=== PATIENT | female | born 1995 | race Caucasian/White ===

== ENCOUNTER 2024-12-07 18:55 | Inpatient (IN) ==
[2024-12-07 19:50] LABS: Basophils # (auto) 0.02 K/uL (0.00-0.20); Basophils % (auto) 0.2 %; Hematocrit (blood only) 36.9 % (37.0-47.0); Hemoglobin 13.3 g/dl (12.0-16.0); Immature Granulocytes # (auto) 0.04 K/uL (0.01-0.20); Immature Granulocytes % (auto) 0.4 %; Lymphocytes # (auto) 0.68 K/uL (1.20-3.40); Lymphocytes % (auto) 6.1 %; Mean Corpuscular Hemoglobin 32.4 pg (25.0-34.0); Mean Platelet Volume 8.8 fL (9.4-12.4); Monocytes # (auto) 1.11 K/uL (0.11-0.59); Neutrophils # (auto) 9.23 K/uL (1.40-6.50); Neutrophils % (auto) 83.3 %; Platelet Count 184 K/uL (130-400); RDW Coefficient of Variation 11.7 % (11.5-14.5); White Blood Count 11.08 K/ul (4.8-10.8)
[2024-12-07 20:01] LABS: Appearance Urine Cloudy (Clear); Bacteria Urine Automated 4+ (None Seen); Bilirubin Urine Negative (Negative); Blood Urine 2+ (Negative); Cast Urine Automated 0-2 /lpf (0-2); Color Urine Yellow; Glucose Urine UA Negative (Negative); Ketones Urine 1+ (Negative); Leukocyte Esterase Urine 3+ (Negative); Nitrite Urine Positive (Negative); Protein Urine 2+ (Negative); Specific Gravity Urine 1.013 (1.000-1.030); Urobilinogen Urine Negative (Negative); WBC Urine Automated >50 /hpf (0-5); pH Urine 5.5 (4.5-7.5)
--- NOTE | 2024-12-07 20:10 | Emergency Department Note ---
Impression & Plan Pyelonephritis, Sepsis, Rigors ED Provider Note NAME: SUNDEEP FRIEDMAN AGE: 29 SEX: F : 1995 ARRIVES VIA: Walk-In INFORMANT: Patient, ED PROVIDER(S): Andrés Stephens MD CHIEF COMPLAINT: Flank pain, burning urination HPI: This is a 29-year-old female sent for fever, flank pain and burning urination. Patient notes that she had a fever today above 100. She notes that she has a new onset headache, nausea and flank pain to the left. She reports 5+ day history of vaginal itching without discharge. Supposed to see EHR TRAINER tomorrow. She feels very weak today. She has no pain to her area. She is having burning with urination. No urgency or frequency. ROS: See above HPI for pertinent positives & negatives. A total of 10 systems reviewed and were otherwise negative. PAST MEDICAL HISTORY: See Below PAST SURGICAL HISTORY: See Below FAMILY HISTORY: See Below SOCIAL HISTORY: See Below HOME MEDICATIONS: See Below ALLERGIES: See Below VITALS: See Below PHYSICAL EXAMINATION: General: resting comfortably in no acute distress Head: Normocephalic and atraumatic Eyes: Normal inspection, extraocular muscles intact Ear, nose, throat: Normal external exam Neck: Normal range of motion Respiratory: lungs clear to auscultation bilaterally Cardiovascular: Regular rate/rhythm, no murmur GI: Left CVA tenderness, soft nontender anterior abdomen Extremities: nontender, moves all extremities Neuro: The patient awake and alert, appropriately conversive, no focal deficits, symmetric faces Skin: Warm, dry, and intact MEDICAL DECISION MAKING: This is a 29-year-old female presenting for fever/flank pain. Patient has CVA tenderness to palpation. She has burning urination. She is currently tachycardic, on arrival was at 117, 105 in the room currently. Her blood pressure initially was 115/70, now it is 92/60. Will give 1 L normal saline. Considered sepsis, pyelonephritis, renal colic. - Labs reviewed with a borderline leukocytosis of 11. Otherwise electrolytes show slight hypokalemia and hyponatremia. Lactic acid elevated at 0.9 -Urinalysis reveals consistent with a UTI. Based on symptoms, this appears more consistent with pyelonephritis. -Discharge was considered however patient began having new abdominal pain during the course of her visit here. Patient did have resolved tachycardia at this time but is still borderline low blood pressures. -Patient went for CAT scan, currently pending reading. There are significant delays from overnight radiology read service - Patient began having new tachycardia now to 130s. She has Reiger ring in the stretcher. She is not febrile however. Patient appears toxic at this time. -Will admit the patient for her suspected pyelonephritis currently pending CT imaging. She is already received ceftriaxone and saline. She is still not hypotensive. Differential diagnosis: Pyelonephritis, cystitis, sepsis, diverticulitis, colitis, bowel perforation, appendicitis Diagnostics interpreted by me: ECG: None Cardiac Monitoring: An order was placed for continuous cardiac monitoring. The monitor shows a rate of 122 with sinus rhythm. Critical Care Note: I have personally spent 34 minutes of critical care time in the direct management of this patient. This includes bedside care, interpretation of diagnostic studies, and testing, discussion with consultants, patient, and family members, and other required patient management activities. This 34 minutes is in excess of all separately billable procedures. Past Med/Surg History Problem List (Updated 12/08/24 @ 01:28 by Andrés Stephens MD) Rigors (Acute) Sepsis (Acute) Pyelonephritis (Acute) Weight loss BERNIE (iron deficiency anemia) Abnormal thyroid function test Migraine Side effect of medication Seizure disorder Medical History Hx of gastroesophageal reflux (GERD) Hx of gastric ulcer History of COVID-19 Hx of seizure disorder Abnormal thyroid function test Iron deficiency Weight loss Hx of migraines Surgical History History of esophagogastroduodenoscopy (EGD) History of tooth extraction Family History Other Family history non-contributory Social History Smoking Status: Never smoker Second Hand Exposure: No; Do You Dip or Chew Tobacco: No; Hx Alcohol Use: Yes Alcohol type: beer, wine and hard liquor Hx Substance Use: No Preferred Language: Serbian Communication Ability: Effective Bilingual Social Worker Required: No Beliefs That Will Affect Care: None Current Living Situation: Alone 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 Feels Safe at Home: Yes Assistive Devices: Glasses Allergies Allergies Allergy/AdvReac Type Severity Reaction Status Date / Time No Known Drug Allergies Allergy Unknown Verified 11/19/24 10:07 Home Meds Home Medications Medication Instructions Recorded Confirmed desvenlafaxine succinate 50 mg 50 mg PO HS 04/15/24 12/07/24 tablet,extended release 24 hr acetaminophen 500 mg tablet 1,000 mg PO Q6H PRN Fever Or Pain 12/07/24 12/07/24 (Tylenol Extra Strength) norethindrone (contraceptive) 0.35 0.35 mg PO DAILY 12/07/24 12/07/24 mg tablet (Incassia) Previous Rx's Medication Instructions Recorded carbamazepine 200 mg 200 mg PO BID 90 days #180 tabs 03/17/24 tablet,extended release,12 hr (Tegretol XR) pantoprazole 40 mg tablet,delayed 40 mg PO DAILY #90 tabs 08/26/24 release (Protonix) lamotrigine 25 mg tablet 50 mg (2 x 25 mg) PO BID 90 days 09/15/24 #360 tabs rizatriptan 10 mg disintegrating 10 mg PO Q2H PRN migraine headache 11/19/24 tablet #12 tabs Results & Data (ED) Vital Signs Vital Signs - 24 hr 12/07/24 18:57 12/07/24 19:46 12/07/24 20:18 Temperature 36.7 C Temperature Source Oral Pulse Rate 117 H 107 H 92 H Pulse Rate from SpO2 Sensor 93 H Pulse Rhythm Regular Pulse Strength Normal Respiratory Rate 20 25 H Respiratory Effort / Characteristics Non-Labored Spontaneous Respiratory Depth Normal Respiratory Pattern Regular Blood Pressure 115/70 105/65 Blood Pressure Mean 85 78 Pulse Oximetry 99 98 Oxygen Delivery Method Room Air Room Air Sepsis Recent Fever Within 48 Hours Yes Sepsis New/Unexplained Change in Mental Status No Sepsis Action Taken by Nursing No Action Required 12/07/24 22:30 12/07/24 23:00 12/07/24 23:36 Temperature Temperature Source Pulse Rate 79 83 122 H Pulse Rate from SpO2 Sensor 80 84 121 H Pulse Rhythm Pulse Strength Respiratory Rate 22 28 H 26 H Respiratory Effort / Characteristics Respiratory Depth Respiratory Pattern Blood Pressure 103/66 99/60 L 118/80 Blood Pressure Mean 78 73 92 Pulse Oximetry 99 99 83 L Oxygen Delivery Method Room Air Sepsis Recent Fever Within 48 Hours Sepsis New/Unexplained Change in Mental Status Sepsis Action Taken by Nursing 12/07/24 23:39 12/07/24 23:45 12/08/24 00:00 Temperature 36.3 C L Temperature Source Oral Pulse Rate 108 H 107 H Pulse Rate from SpO2 Sensor 108 H Pulse Rhythm Pulse Strength Respiratory Rate 18 Respiratory Effort / Characteristics Respiratory Depth Respiratory Pattern Blood Pressure 116/73 Blood Pressure Mean 86 Pulse Oximetry 98 Oxygen Delivery Method Room Air Sepsis Recent Fever Within 48 Hours Sepsis New/Unexplained Change in Mental Status Sepsis Action Taken by Nursing Laboratory Data 12/07/24 19:34 12/07/24 19:34 Lab Results 12/07/24 12/07/24 Range/Units 19:34 23:52 WBC 11.08 H (4.8-10.8) K/ul RBC 4.10 L (4.20-5.40) M/uL Hgb 13.3 (12.0-16.0) g/dl Hct 36.9 L (37.0-47.0) % MCV 90.0 (80.0-100.0) fL MCH 32.4 (25.0-34.0) pg MCHC 36.0 (32.0-36.0) g/dL RDW Std Deviation 38.0 (36.4-46.3) fL RDW Coeff of [place] 11.7 (11.5-14.5) % Plt Count 184 (130-400) K/uL MPV 8.8 L (9.4-12.4) fL Immature Gran % (Auto) 0.4 % Neut % (Auto) 83.3 % Lymph % (Auto) 6.1 % [place] % (Auto) 10.0 % Eos % (Auto) 0.0 % Baso % (Auto) 0.2 % Neut # (Auto) 9.23 H (1.40-6.50) K/uL Lymph # (Auto) 0.68 L (1.20-3.40) K/uL [place] # (Auto) 1.11 H (0.11-0.59) K/uL Eos # (Auto) 0.00 (0.00-0.50) K/uL Baso # (Auto) 0.02 (0.00-0.20) K/uL Immature Gran # (Auto) 0.04 (0.01-0.20) K/uL Sodium 134 L (136-145) mmol/L Potassium 3.4 L (3.5-5.1) mmol/L Chloride 101 (98-107) mmol/L Carbon Dioxide 23 (21-32) mmol/L Anion Gap 10 (3-11) BUN 12 (6-23) mg/dl Creatinine 0.77 (0.6-1.2) mg/dl Est Cr Clr Drug Dosing 90.4 ml/min eGFR 105.70 BUN/Creatinine Ratio 15.6 (10-20) Glucose 110 H (70-99(Fasting)) mg/dl Lactate 0.9 2.8 H* (0.4-2.0) mmol/L Calcium 9.2 (8.6-10.3) mg/dl Total Bilirubin 0.6 (0.2-1.0) mg/dl AST 15 (13-39) U/L ALT 9 (7-52) U/L Alkaline Phosphatase 73 (34-104) U/L Total Protein 7.7 (6.0-8.3) gm/dl Albumin 4.2 (3.4-5.0) gm/dl Globulin 3.5 (2.5-4.0) gm/dl Albumin/Globulin Ratio 1.2 (0.9-2) Urine Color Yellow Urine Appearance Cloudy A (Clear) Urine pH 5.5 (4.5-7.5) Ur Specific [place] 1.013 (1.000-1.030) Urine Protein 2+ H (Negative) Urine Glucose (UA) Negative (Negative) Urine Ketones 1+ H (Negative) Urine Blood 2+ H (Negative) Urine Nitrite Positive A (Negative) Urine Bilirubin Negative (Negative) Urine Urobilinogen Negative (Negative) Ur Leukocyte Esterase 3+ H (Negative) Urine WBC (Auto) >50 H (0-5) /hpf Urine RBC (Auto) 3-5 H (0-2) /hpf U Hyaline Cast (Auto) 0-2 (0-2) /lpf U Epithel Cells (Auto) 3-5 H (0-2) /hpf Urine Bacteria (Auto) 4+ H (None Seen) Urine Comment Administered Medications Discontinued Medications Ceftriaxone Sodium (Rocephin) 2,000 mg in 50 mls @ 100 mls/hr IV NOW STA Stop: 12/07/24 20:35 Last Infusion: 12/07/24 20:55 Dose: Infused Documented By: Admin: 12/07/24 20:25 Dose: 100 mls/hr Documented By: SAMPSON Sodium Chloride (Nss) 1,000 mls @ 999 mls/hr IV .Q1H1M ONE Stop: 12/07/24 21:10 Last Infusion: 12/07/24 21:38 Dose: Infused Documented By: Admin: 12/07/24 20:25 Dose: 999 mls/hr Documented By: SAMPSON Acetaminophen (Ofirmev) 1,000 mg in 100 mls @ 400 mls/hr IV NOW STA Stop: 12/07/24 23:53 Last Infusion: 12/08/24 00:01 Dose: Infused Documented By: Admin: 12/07/24 23:46 Dose: 400 mls/hr Documented By: ROSIBEL Sodium Chloride (Nss) 1,000 mls @ 999 mls/hr IV .Q1H1M ONE Stop: 12/08/24 00:56 Last Admin: 12/08/24 00:05 Dose: 999 mls/hr Documented By: NICOLE Ioversol (Optiray 320 100ml) 93 ml IV ONCE ONE Stop: 12/07/24 22:03 Last Admin: 12/07/24 22:02 Dose: 93 ml Documented By: DIANA Ondansetron HCl (Ondansetron Inj 2 Mg/Ml 2 Ml Vial) 4 mg IV NOW STA Stop: 12/07/24 23:57 Last Admin: 12/08/24 00:06 Dose: 4 mg Documented By: NICOLE Discharge Plan Visit Data Chief Complaint: Fever Stated Complaint: FEVER,WEAKNESS ED Provider: Andrés Stephens Discharge Problem: Pyelonephritis, Sepsis, Rigors Patient Disposition: Admitted As Inpatient Condition: Fair Forms Stand Alone Forms: [facility] Prescriptions Prescriptions: No Action carbamazepine [Tegretol XR] 200 mg tablet extended release 12 hr 200 mg PO BID 90 Days Qty: 180 3RF lamotrigine 25 mg tablet 50 mg PO BID 90 Days Qty: 360 3RF rizatriptan 10 mg tablet,disintegrating 10 mg PO Q2H PRN (Reason: migraine headache) Qty: 12 5RF Rx Instructions: do not exceed 3 doses per 24 hrs desvenlafaxine succinate 50 mg tablet extended release 24 hr 50 mg PO HS norethindrone (contraceptive) [Incassia] 0.35 mg tablet 0.35 mg PO DAILY acetaminophen [Tylenol Extra Strength] 500 mg Tablet 1,000 mg PO Q6H PRN (Reason: Fever Or Pain) pantoprazole [Protonix] 40 mg tablet,delayed release (DR/EC) 40 mg PO DAILY Qty: 90 0RF Rx Instructions: take 1/2 hr before breakfast Referrals Referrals: [place] [Primary Care Provider] - Discharge Problem: Sepsis Qualifiers: Sepsis type: sepsis due to unspecified organism Sepsis acute organ dysfunction status: without acute organ dysfunction Qualified Code(s): A41.9 - Sepsis, unspecified organism
[2024-12-07 20:14] LABS: Albumin Globulin Ratio 1.2 (0.9-2); Albumin Level 4.2 gm/dl (3.4-5.0); BUN Creatinine Ratio 15.6 (10-20); Bilirubin,Total 0.6 mg/dl (0.2-1.0); Calcium 9.2 mg/dl (8.6-10.3); Creatinine Clr Calc Pharmacy 90.4 ml/min; Globulin 3.5 gm/dl (2.5-4.0); Potassium 3.4 mmol/L (3.5-5.1); Total Protein 7.7 gm/dl (6.0-8.3)
[2024-12-07] MEDS: cefTRIAXone SODIUM 2,000 MG/50 ML BAG IV STA (20:25)
[2024-12-07] MEDS: SODIUM CHLORIDE 0.9% 1,000 ML IV ONE (20:25)
[2024-12-07] MEDS: OPTIRAY 320 100ml IV ONE (22:02)
[2024-12-07] MEDS: ACETAMINOPHEN 1,000 MG/100 ML VIAL IV STA (23:46)
[2024-12-08] MEDS: SODIUM CHLORIDE 0.9% 1,000 ML IV ONE (00:05)
[2024-12-08] MEDS: ONDANSETRON INJ 2 MG/ML 2 ML VIAL IV STA (00:06)
--- NOTE | 2024-12-08 00:25 | History & Physical Report ---
Date of Service December 08, 2024 Assessment & Plan (1) Pyelonephritis: (2) Sepsis: (3) Seizure disorder: Plan 29 year old female presents to the ER with dysuria, abdominal pain, fever and chills. #Acute pyelonephritis / Sepsis NSS 2L bolus, Lactate 2.8 -> 0.5 IV ceftriaxone Follow up blood and urine cultures #Seizure disorder Continue carbamazepine XR and lamotrigine VTE Prophylaxis - low risk Diet - regular Disposition - admit to med/surg Admission and Anticipated Discharge Date Admission Date: December 08, 2024 History of Present Illness Chief Complaint: Dysuria, fever, chills Primary Care Provider: [facility] Jessica Hammond is a 29 year old female who presents to the ER with dysuria, abdominal pain, fever and chills. She reports 4-5 days of dysuria and vaginal itching. Last night she started with fever, chills with associated right lower abdominal pain, right sided flank pain, headache and nausea. No history of urine tract infection or kidney stones. Allergies Allergy/AdvReac Type Severity Reaction Status Date / Time No Known Drug Allergies Allergy Unknown Verified 11/19/24 10:07 Home Medications Medication Instructions Recorded Confirmed Type carbamazepine 200 mg 200 mg PO BID 90 days #180 tabs 03/17/24 12/07/24 Rx tablet,extended release,12 hr (Tegretol XR) desvenlafaxine succinate 50 mg 50 mg PO HS 04/15/24 12/07/24 History tablet,extended release 24 hr pantoprazole 40 mg tablet,delayed 40 mg PO DAILY #90 tabs 08/26/24 12/07/24 Rx release (Protonix) lamotrigine 25 mg tablet 50 mg (2 x 25 mg) PO BID 90 days 09/15/24 12/07/24 Rx #360 tabs rizatriptan 10 mg disintegrating 10 mg PO Q2H PRN migraine headache 11/19/24 12/07/24 Rx tablet #12 tabs acetaminophen 500 mg tablet 1,000 mg PO Q6H PRN Fever Or Pain 12/07/24 12/07/24 History (Tylenol Extra Strength) norethindrone (contraceptive) 0.35 0.35 mg PO DAILY 12/07/24 12/07/24 History mg tablet (Incassia) Past Med/Surg History Problem List (Updated 12/08/24 @ 01:28 by Andrés Stephens MD) Rigors (Acute) Sepsis (Acute) Pyelonephritis (Acute) Weight loss BERNIE (iron deficiency anemia) Abnormal thyroid function test Migraine Side effect of medication Seizure disorder Medical History Hx of gastroesophageal reflux (GERD) Hx of gastric ulcer History of COVID-19 Hx of seizure disorder Abnormal thyroid function test Iron deficiency Weight loss Hx of migraines Surgical History History of esophagogastroduodenoscopy (EGD) History of tooth extraction Family History Other Family history non-contributory Social History Smoking Status: Never smoker Second Hand Exposure: No; Do You Dip or Chew Tobacco: No; Hx Alcohol Use: Yes Alcohol type: beer, wine and hard liquor Hx Substance Use: No Preferred Language: South African Communication Ability: Effective Manager Loss Prevention Required: No Beliefs That Will Affect Care: None Current Living Situation: Alone 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 Feels Safe at Home: Yes Assistive Devices: Glasses Review of Systems Review of Systems: All systems reviewed & are unremarkable except as noted in HPI & below Physical Exam Constitutional: WD/WN, vitals as above ENMT: external ear and nose normal, oropharynx normal Respiratory: normal respiratory effort, lungs clear to auscultation Cardiovascular: Rate/Rhythm: regular rhythm and + tachycardic Heart Sounds: no murmur Extremities: normal capillary refill; no calf tenderness and no pedal edema Gastrointestinal (Abdomen): Inspection/Auscultation: abdomen normal to inspection; abdomen not distended Percussion/Palpation: + abdomen tender (Right sided) and abdomen soft Skin: no rashes, warm and dry Neurologic: moves all extremities and awake; not confused Psychiatric: A+Ox3, euthymic affect Genitourinary: + CVA tenderness (right) Results & Data Results & Data Vital Signs (Past 12 Hours) Vital Signs Temp Pulse Resp BP Pulse Ox O2 Del Method 12/07/24 23:45 108 H 12/07/24 23:39 36.3 C L 12/07/24 23:36 122 H 26 H 118/80 83 L 12/07/24 23:00 83 28 H 99/60 L 99 Room Air 12/07/24 22:30 79 22 103/66 99 12/07/24 20:18 92 H 25 H 105/65 98 Room Air 12/07/24 19:46 107 H 12/07/24 18:57 36.7 C 117 H 20 115/70 99 Room Air Laboratory Results Abnormal lab results 12/07/24 12/07/24 Range/Units 19:34 23:52 WBC 11.08 H (4.8-10.8) K/ul RBC 4.10 L (4.20-5.40) M/uL Hct 36.9 L (37.0-47.0) % MPV 8.8 L (9.4-12.4) fL Neut # (Auto) 9.23 H (1.40-6.50) K/uL Lymph # (Auto) 0.68 L (1.20-3.40) K/uL [place] # (Auto) 1.11 H (0.11-0.59) K/uL Sodium 134 L (136-145) mmol/L Potassium 3.4 L (3.5-5.1) mmol/L Glucose 110 H (70-99(Fasting)) mg/dl Lactate 2.8 H* (0.4-2.0) mmol/L Urine Appearance Cloudy A (Clear) Urine Protein 2+ H (Negative) Urine Ketones 1+ H (Negative) Urine Blood 2+ H (Negative) Urine Nitrite Positive A (Negative) Ur Leukocyte Esterase 3+ H (Negative) Urine WBC (Auto) >50 H (0-5) /hpf Urine RBC (Auto) 3-5 H (0-2) /hpf U Epithel Cells (Auto) 3-5 H (0-2) /hpf Urine Bacteria (Auto) 4+ H (None Seen) Medications Administered ER Medications Given: Ceftriaxone 2000mg IV Normal saline 1000ml bolus Acetaminophen 1000mg IV Code Status & VTE Plan Code Status Full VTE Prophylaxis Plan VTE Prophylaxis will be ordered: No PG Care Time/CCT Total # of Minutes Spent Total Time Spent with Patient: Total time spent is greater than 50% in coordination of care (as documented) at patient's floor/unit and/or counseling patient: Coding Level of Care Code 41009 INT INP/OBS CARE MIN Diagnoses Pyelonephritis N12 Sepsis A41.9 Sepsis acute organ dysfunction status: without acute organ dysfunction Sepsis type: sepsis due to unspecified organism Seizure disorder G40.909 (2) Sepsis Sepsis acute organ dysfunction status: without acute organ dysfunction Sepsis type: sepsis due to unspecified organism Qualified Code(s): A41.9 - Sepsis, unspecified organism
--- NOTE | 2024-12-08 02:22 | CT Scan Report ---
Exam(s): CT ABDOMEN + PELVIS With Contrast IV Amt: 93 ml optiray 320 EXAM: CT Abdomen and Pelvis With Intravenous Contrast CLINICAL HISTORY: Reason for exam: Flank pain, lower abd pain, pyelo vs renal colic. TECHNIQUE: Axial computed tomography images of the abdomen and pelvis with intravenous contrast. CTDI is 7.43 mGy and DLP is 388.52 mGy-cm. Automated exposure control was utilized for the study. A dose lowering technique was utilized adhering to the principles of ALARA. CONTRAST: Patient received 93 ml optiray 320 of IV contrast COMPARISON: CT dated 07/19/24, MRI abdomen dated 09/09/24 FINDINGS: Lung bases: Unremarkable. No mass. No consolidation. ABDOMEN: Liver: Stable right hepatic lobe hypodensity characterized as hemangioma on the prior MRI. Gallbladder and bile ducts: Unremarkable. No calcified stones. No ductal dilation. Pancreas: Unremarkable. No mass. No ductal dilation. Spleen: Unremarkable. No splenomegaly. Adrenals: Unremarkable. No mass. Kidneys and ureters: Wedge-shaped patchy hypodense areas of the kidneys bilaterally. Bilateral urothelial enhancement and mild perinephric/periureteral stranding. No hydronephrosis. No urinary tract calculi Stomach and bowel: Unremarkable. No obstruction. No mucosal thickening. PELVIS: Appendix: Normal appendix. Bladder: Bladder wall thickening of moderately distended bladder. Likely reflects cystitis. Reproductive: Unremarkable as visualized. ABDOMEN and PELVIS: Intraperitoneal space: Trace fluid in the pelvis. No free air. Bones/joints: No acute fracture. No dislocation. Soft tissues: Unremarkable. Vasculature: Unremarkable. No abdominal aortic aneurysm. Lymph nodes: Unremarkable. No enlarged lymph nodes. IMPRESSION: Wedge-shaped patchy hypodense areas of the kidneys bilaterally. Bilateral urothelial enhancement and mild perinephric/periureteral stranding. Findings correlate with pyelonephritis. Electronically signed by: Corie Villafana M.D. 12/08/24 02:22 AM
[2024-12-08] MEDS ORDERED: ACETAMINOPHEN 500 MG TAB PO PRN (02:51)
[2024-12-08] MEDS ORDERED: ONDANSETRON INJ 2 MG/ML 2 ML VIAL IV PRN (03:05)
[2024-12-08] MEDS: ORAL CONTRACEPTIVE~ORDER AWAITING ACTION SCH (07:08)
--- NOTE | 2024-12-08 08:28 | Hospitalist Progress Note ---
Date of Service December 08, 2024 Assessment & Plan Plan 29 year old female presents to the ER with dysuria, abdominal pain, fever and chills. #Acute pyelonephritis / Sepsis S/p NSS 2L bolus, Lactate 2.8 -> 0.5 IV ceftriaxone Follow up blood and urine cultures #Seizure disorder Continue carbamazepine XR and lamotrigine VTE Prophylaxis - low risk Diet - regular Disposition - admit to med/surg Admission and Anticipated Discharge Date Admission Date: December 08, 2024 Subjective Seen this morning, Feeling better. Pain and nausea are improved. Denied any chest pain, abdominal pain, fever, or chills Review of Systems Review of Systems: as per HPI Physical Exam Constitutional: WD/WN, vitals as above Respiratory: normal respiratory effort, lungs clear to auscultation Cardiovascular: RRR, no murmur, no edema Gastrointestinal (Abdomen): normal bowel sounds, soft, nontender, no hepatosplenomegaly Results & Data Results & Data Vital Signs (Past 12 Hours) Vital Signs Temp Pulse Pulse Pulse Resp BP BP 12/08/24 07:47 36.7 C 77 17 92/58 L 12/08/24 02:50 36.9 C 77 14 12/08/24 01:00 100 H 24 94/59 L 12/08/24 00:00 107 H 18 116/73 12/07/24 23:45 108 H 12/07/24 23:39 36.3 C L 12/07/24 23:36 122 H 26 H 118/80 12/07/24 23:00 83 28 H 99/60 L 12/07/24 22:30 79 22 103/66 BP Pulse Ox O2 Del Method 12/08/24 07:47 97 Room Air 12/08/24 02:50 95/59 L 96 Room Air 12/08/24 01:00 95 Room Air 12/08/24 00:00 98 Room Air 12/07/24 23:45 12/07/24 23:39 12/07/24 23:36 83 L 12/07/24 23:00 99 Room Air 12/07/24 22:30 99 Resident Activity Tracking Resident Involvement: Resident Care Provided Care Provided: Adult Hospital Medicine
[2024-12-08] MEDS: lamoTRIgine 25 MG TAB PO SCH (09:12)
[2024-12-08] MEDS: carBAMazepine XR 200 MG TABCR PO SCH (09:12)
[2024-12-08] MEDS: PANTOprazole 40 MG TAB PO SCH (09:12)
[2024-12-08 14:29] VITALS: BP 95/61; PULSE 63; RESP 16; TEMP 98.6; O2SAT 100
[2024-12-08] MEDS: cefTRIAXone SODIUM 2,000 MG/50 ML BAG IV SCH (15:11)
--- NOTE | 2024-12-08 15:23 | Discharge Summary ---
Date of Service December 08, 2024 Admission HPI Per Admitting Provider Jessica Hammond is a 29 year old female who presents to the ER with dysuria, abdominal pain, fever and chills. She reports 4-5 days of dysuria and vaginal itching. Last night she started with fever, chills with associated right lower abdominal pain, right sided flank pain, headache and nausea. No history of urine tract infection or kidney stones. Principal Diagnosis Pyelonephritis Discharge Exam Constitutional WD/WN, vitals as above Respiratory normal respiratory effort, lungs clear to auscultation Cardiovascular RRR, no murmur, no edema Gastrointestinal (Abdomen) normal bowel sounds, soft, nontender, no hepatosplenomegaly Discharge Data Allergies Allergy/AdvReac Type Severity Reaction Status Date / Time No Known Drug Allergies Allergy Unknown Verified 11/19/24 10:07 Consultations 12/07/24 23:54 ED Decision to Admit Stat Ordered Studies 12/07/24 21:46 CT abd pelvis IV con only Stat Hospital Course (1) Pyelonephritis: Plan 29 year old female presents to the ER with dysuria, abdominal pain, fever and chills. #Acute pyelonephritis / Sepsis S/p NSS 2L bolus, Lactate 2.8 -> 0.5, WBC 11 Treated IV ceftriaxone Urine culture - E/Coli Blood culture negative for 24 hrs - Will discharged home with Cefpodoxime 200 mg BID for 14 days #Seizure disorder Continue carbamazepine XR and lamotrigine VTE Prophylaxis - low risk Diet - regular Disposition - admit to med/surg Total Time Total Time Spent Total Time Spent (In Minutes): see attending documentation Discharge Plan Discharge Items Patient Disposition: Home - Self-Care Reason For Visit: ACUTE PYELONEPHRITIS Discharge Diagnosis: Pyelonephritis Condition on Discharge: Fair Activity: Per Instructions section Non-emergency contact: Primary Care Provider Call non-emergency contact if: you have any medication questions, your symptoms worsen and your temperature is above 101 Follow-up/Referrals: [place] [Primary Care Provider] - Diet: Regular Addtl Attending Provider Instructions: You were admitted to the hospital due to pyelonephritis (infection on your kidneys). You were treated with IV antibiotics and fluids. We will continue antibiotics for 14 days in total. We sent to your pharmacy Cefpodoxime 200 mg twice a day for 12 more days. Blood culture are pending, we will reach out if this result positive. A discharge summary will be sent to your primary care physician to ensure continuity of care. Please bring this discharge summary with you to your next office appointment so that your provider can review it at that time. Medications: Your medication list has been reviewed and reconciled upon discharge to ensure accuracy and continuity of care. An updated list of all your medications is included with your hospital discharge paperwork. Please review this list closely and make note of any changes to your medications. Follow up appointments: - Make a follow up appointment with your PCP within the next week. It is very important that you follow up with them shortly after discharge from the hospital. - Keep all of your follow up appointments as already scheduled. If you cannot make an appointment, notify your provider. CONTACT YOUR PRIMARY CARE PROVIDER if you experience any of the following: - Difficulty following your treatment plan - Difficulty taking any of your medications CALL 911 OR GO TO THE EMERGENCY DEPARTMENT if you experience any of the following: - Sudden, severe abdominal pain or nausea/vomiting - Severe chest pain or chest pain that radiates to your jaw or arm - Sudden, severe shortness of breath or difficulty breathing Pending Studies at Discharge: Yes (blood culture) Stand-Alone Forms: [facility], Smoking Cessation Medications and DC Order Prescriptions: New cefpodoxime 200 mg tablet 200 mg PO BID 12 Days Qty: 24 0RF Rx Instructions: must administer with a meal/food Continued carbamazepine [Tegretol XR] 200 mg tablet extended release 12 hr 200 mg PO BID 90 Days Qty: 180 3RF lamotrigine 25 mg tablet 50 mg PO BID 90 Days Qty: 360 3RF rizatriptan 10 mg tablet,disintegrating 10 mg PO Q2H PRN (Reason: migraine headache) Qty: 12 5RF Rx Instructions: do not exceed 3 doses per 24 hrs desvenlafaxine succinate 50 mg tablet extended release 24 hr 50 mg PO HS norethindrone (contraceptive) [Incassia] 0.35 mg tablet 0.35 mg PO DAILY acetaminophen [Tylenol Extra Strength] 500 mg Tablet 1,000 mg PO Q6H PRN (Reason: Fever Or Pain) pantoprazole [Protonix] 40 mg tablet,delayed release (DR/EC) 40 mg PO DAILY Qty: 90 0RF Rx Instructions: take 1/2 hr before breakfast Discharge Orders: Discharge Order (Routine); Ordered 12/08/24 Ordered By: Rajesh Nino Admission Data Admit Date/Time: 12/08/24 02:11 Attending Provider: Jeremy Conway Admit Provider: Dallas Orozco Primary Care Provider: [facility] Other Providers: Dallas Orozco Other Interventions: Discharge Summary Assessment (RN) Last Done: 12/08/24 16:03 Supervising Physician Co-Signing Physician Notes I personally examined the patient and verified all guzman points of history and exam, discussed case, and agree with decision making with Dr Ramón Nino Feeling better overall. Would like to go home. Discussed final results of urine culture still pending. She is okay with empiric treatment and is calling to adjust treatment if necessary after discharge. Vitals noted, in general she is awake and alert pleasant no distress. HEENT normocephalic atraumatic mucous membranes moist. Breathing unlabored no accessory muscle use good effort. Skin without rashes pallor or icterus. Neuro without focal deficits. Labs and diagnostics noted pyelonephritis with possible sepsis present on admission (SIRS criteria would be heart rate and respiratory rate)culture showing E. coli, sensitivities pending. She looks and feels well and would like to go home. Improving on ceftriaxone. We discussed empiric treatment with cefpodoxime, and we will call if her urine culture/sensitivities show a need for change of antibiotics. She is comfortable with this plan and would like to go home. PCP follow-up in the next week. Discussed anticipated slow return to totally normal after an infection like pyelo.
--- NOTE | 2024-12-08 17:18 | Billing Data ---
Date of Service December 08, 2024 Coding Level of Care Code 26308 IN/OBS DISCH 30 MIN/LESS
--- NOTE | 2024-12-08 17:18 | Billing Data ---
Date of Service December 08, 2024 Coding Level of Care Code 87284 IN/OBS DISCH 30 MIN/LESS
[2024-12-08] MEDS ORDERED: cefTRIAXone SODIUM 2,000 MG/50 ML BAG IV SCH (20:00)
== END 2024-12-08 17:29 | disposition home or self-care (01) | DRG 872 ==
LOC: ED 18:55 → SUATTDRO 12-08 02:11 → 3E 12-08 02:11